=== PATIENT | male | born 1975 | race Caucasian/White ===

== ENCOUNTER 2016-06-26 02:47 | Emergency (ER) | payer MEDICAID ==
[~2016-06-26] VITALS: Ht 167.6 cm; Wt 73.5 kg
[~2016-06-26 02:47] MED LIST: HYDR-1666 PO; PRED20TA PO
[2016-06-26 02:51] VITALS: Ht 167.6 cm; Wt 73.5 kg
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
[2016-06-26] MEDS ORDERED: HYDROmorphONE 1 MG/ML SYG IV STA (04:22)
[2016-06-26] MEDS ORDERED: SOD CHLORIDE 0.9% 1,000 ML IV STA (04:22)
[2016-06-26] MEDS ORDERED: ONDANSETRON 4 MG INJ IV STA (04:22)
[2016-06-26] MEDS ORDERED: SOD CHLORIDE 0.9% 1,000 ML IV ONE (04:30)
[2016-06-26] MEDS ORDERED: PANTOPRAZOLE 40 MG INJ IV ONE (04:30)
[2016-06-26 05:02] LABS: HEMATOCRIT 42.1 % (42.0-52.0); HEMOGLOBIN 14.4 g/dl (14.0-18.0); MEAN CORPUSCULAR HEMOGLOBIN 30.7 pg (29.0-33.0); MEAN CORPUSCULAR HGB CONC 34.2 g/dl (32.0-37.0); MEAN CORPUSCULAR VOLUME 89.8 fl (82.0-101.0); MEAN PLATELET VOLUME 7.9 fl (7.4-10.4); PLATELET COUNT 205 10^3/UL (140-440); RED BLOOD COUNT 4.68 10^6/ul (4.70-6.10); RED CELL DISTRIBUTION WIDTH 13.1 % (11.5-14.5); UNCORRECTED WBC 15.5 10^3/ul (4.8-10.8); WHITE BLOOD COUNT 15.5 10^3/ul (4.8-10.8)
[2016-06-26 05:14] LABS: POTASSIUM 3.3 mmol/L (3.5-5.1)
[2016-06-26 05:16] LABS: BILIRUBIN,INDIRECT 0.4 mg/dl (0-1.1); BILIRUBIN,TOTAL 0.4 mg/dl (0.2-1.3); CREATININE 0.83 mg/dl (0.61-1.24)
[2016-06-26 05:17] LABS: ALBUMIN/GLOBULIN RATIO 1.14; CALCIUM 8.9 mg/dl (8.4-10.2); TOTAL PROTEIN 7.5 g/dl (6.1-8.1)
[2016-06-26 05:18] LABS: INR 0.95; PROTIME 12.7 Sec (12.2-14.2)
[2016-06-26 05:19] LABS: PARTIAL THROMBOPLASTIN TIME 28.7 Sec (25.0-35.0)
[2016-06-26 05:53] LABS: CONDITION 1; LH ANALYZER COMMENTS 1
[2016-06-26] MEDS ORDERED: POTASSIUM CHLORIDE (SR) 20 MEQ TAB PO ONE (06:01)
[2016-06-26 06:30] VITALS: BP 128/64; PULSE 89; RESP 20; TEMP 99.2
--- NOTE | 2016-06-26 06:35 | RADRPT ---
PROCEDURE: CT ABDOMEN/PELVIS WITHOUT CONTRAST CLINICAL INDICATION: 40-year-old male with abdominal pain. TECHNIQUE: The study was performed utilizing a [employer] VCT 64-slice CT scanner. Direct axia l sections were obtained through the abdomen and pelvis without the use of intravenous contrast mate rial. Sagittal and coronal reformations were obtained. Automated exposure control and iterative christopher nstruction techniques were utilized for this examination. [facility] CTD/vol = 8.4 mGy; Total Exam DLP = 500.8 mGy-cm. COMPARISON: None. FINDINGS: There is mild bibasilar subsegmental atelectasis. There is no evidence for significant pleural effu yuliana. The liver has a normal size and contour without focal areas of abnormal density. No intrahepa tic nor extrahepatic biliary ductal dilatation is seen. The gallbladder demonstrates no wall thicken ing nor pericholecystic fluid. No biliary stones are evident. The pancreas is without areas of abnor mal attenuation. The spleen is identified and has a normal size without abnormal density. The adren al glands are unremarkable. The kidneys are without abnormal density. No hydroureteronephrosis nor n ephroureterolithiasis is evident. The urinary bladder contains urine. There is mildly dilated fluid- filled ascending colon without definite transition point. The appendix is visualized and is without abnormal thickening or surrounding inflammatory reaction. There is no significant free fluid. The prostate is not enlarged however there are small central calcifications within it. There is no significant free fluid. The aortoiliac vessels are without aneurysmal dilatation. The osseous struct ures are intact. IMPRESSION: 1. Mild bibasilar subsegmental atelectasis. 2. No CT evidence for obstructive uropathy or renal calculi. 3. No CT evidence for appendicitis. .Leodan Noble MD, MD Date Time Electronically viewed and signed by .Leodan Noble MD, on 06/26/2016 06:35 .M/
[2016-06-26 07:57] LABS: LYMPHOCYTES # 0.5 10^3/ul (0.8-2.9); MONOCYTE # 0.3 10^3/ul (0.3-0.9); NEUTROPHIL # 13.5 10^3/ul (1.6-7.5)
== END 2016-06-26 08:15 | disposition home or self-care (01) ==
LOC: E/R 02:47
DX: R10.84 Generalized abdominal pain (principal); R11.2 Nausea with vomiting, unspecified; R19.7 Diarrhea, unspecified
CPT/HCPCS: 36415; 74176; 80053; 83690; 85025; 85610; 85730; 96374; 96375; C9113; J1170; J2405; J7030; Z7502; Z7610